=== PATIENT | male | born 1980 | race Hispanic/Latino ===

== ENCOUNTER 2020-05-05 10:22 | Outpatient (CLI) | payer OTHER ==
--- NOTE | 2020-05-05 14:36 | CT ---
Exam: Chest CT with contrast Abdomen CT with contrast Pelvic CT with contrast HISTORY: Recent EGD and colonoscopy. Mass in the colon. Correlation: None COMPARISON: No FINDINGS: Chest CT: Mediastinum: No mass, lymphadenopathy or hematoma. Aorta: Normal caliber. No periaortic fat stranding Heart: Normal heart size. No significant pericardial fluid Trachea and central bronchi: Patent Pleural spaces: No pleural effusion Right lung: Dependent atelectatic changes. No mass, consolidation or suspicious nodule. Left lung:Dependent atelectatic changes. No mass, consolidation or suspicious nodules Pneumothorax: None Abdomen CT: Gallbladder: Unremarkable Portal vein: Patent Liver: Diffuse hypoattenuation suggesting hepatic steatosis. There is a small amount of fatty sparing in the hepatic parenchyma near the gallbladder fossa. Spleen: Appropriate enhancement Pancreas: Appropriate enhancement Adrenal glands: Appropriate enhancement Lymphadenopathy: No gastrohepatic, retrocrural or periportal lymphadenopathy Kidneys: Symmetric enhancement. No obstructive uropathy Mesentery: No mass, free air or free fluid. Mildly enlarged mesenteric lymph nodes adjacent to the ce cum measuring 0.8 and 0.7 cm. Alimentary canal: Gastric mucosa, duodenum and multiple normal caliber small bowel loops are identifi ed. Normal ileocecal junction. Normal caliber appendix. There is a soft tissue mass cecum. Occasional diverticulum. No diverticulitis. Pelvis CT: No mass, lymphadenopathy, free air or free fluid. Unremarkable urinary bladder. Focal fat is preserve d. Osseous structures:No lytic or blastic lesions IMPRESSION: 1. Mass within the cecum, measuring 3.8 x 3.2 cm. No associated obstruction. There are a few enlarged adjacent mesenteric lymph nodes, worrisome for metastases until proven.
[2020-05-05] MEDS ORDERED: Iopamidol-370 76% 500 ML 1 ML ONE (15:13)
== END 2020-05-05 10:23 | disposition home or self-care (01) ==
LOC: BICCT 10:22
PROVIDERS: ATTEND Internal Medicine
DX: K63.89 Other specified diseases of intestine (principal); R59.0 Localized enlarged lymph nodes
CPT/HCPCS: 71260; 74177; Q9967

== ENCOUNTER 2020-06-14 06:33 | Outpatient (CLI) | payer OTHER ==
[2020-06-14 12:05] LABS: #Basophils 0.1 10x3/uL (0.0-0.2); #Eosinphils 0.1 10x3/uL (0.0-0.5); #Monocytes 0.6 10x3/uL (0.0-1.1); #Neutrophils 3.5 10x3/uL (1.5-8.4); %Eosinophils 1.4 % (0.0-6.0); %Lymphocytes 36.9 % (18.0-47.0); %Monocytes 8.1 % (0.0-10.0); Hemoglobin 14.8 g/dL (14.0-18.0); Mean Corpuscular Hemoglobin 28.8 PG (27.0-33.0); Mean Corpuscular Volume 87.2 fl (80.0-100.0); Mean Platelet Volume 10.4 fl (7.4-10.4); Platelet Count 279 10x3/uL (130-400); RBC Distribution Width 12.5 % (11.5-14.5); Red Blood Cell (RBC) Count 5.14 10x6/uL (4.40-5.80)
[2020-06-14 12:32] LABS: Anion Gap 14 mmol/L (10-20); BUN (Urea Nitrogen) 20 mg/dL (8.9-20.6); Calc. Creatinine Clearance 0 mL/min (70-130); Carbon Dioxide 24 mmol/L (22-29); Chloride 102 mmol/L (98-107); Glucose 150 mg/dL (70-105); Potassium 4.1 mmol/L (3.5-5.1); Sodium 136 mmol/L (136-145)
[2020-06-14 16:22] LABS: Hemoglobin A1c 8.2 % (4.0-6.0)
[2020-06-14 17:44] LABS: SARS-CoV-2 MS2 Positive; SARS-CoV-2 N Gene Negative; SARS-CoV-2 S Gene Negative; SARS-CoV-2 by NAA Not Detected (NotDetected); SARS-CoV-2 orf1ab Negative
== END 2020-06-14 06:34 | disposition home or self-care (01) ==
LOC: LABBT 06:33
PROVIDERS: ATTEND Specialist
DX: Z01.818 Encounter for other preprocedural examination (principal); K63.89 Other specified diseases of intestine; Z20.828 Contact with and (suspected) exposure to other viral communicable diseases
CPT/HCPCS: 80048; 83036; 85025; 87635; 93005; 93010; U0003

== ENCOUNTER 2020-06-14 11:00 | Inpatient (IN) | payer OTHER ==
[2020-06-14 10:30] VITALS: BMI 29.8
[2020-06-20] MEDS ORDERED: Acetaminophen 500 MG TAB ONE (07:24)
[2020-06-20] MEDS ORDERED: Ketorolac Tromethamine 30 MG/ML VIAL ONE (07:46)
[2020-06-20] MEDS ORDERED: cefOXitin Sodium/Dextrose 2 GM/50 ML BAG ONE (07:46)
[2020-06-20] MEDS ORDERED: Fentanyl 100 MCG/2 ML VIAL ONE ×4 (08:32→16:52)
[2020-06-20] MEDS ORDERED: Midazolam HCl 2 mg/2 ml Vial ONE (08:52)
[2020-06-20] MEDS ORDERED: HYDROmorphone 2 MG/ML VIAL ONE (09:20)
[2020-06-20] MEDS ORDERED: Famotidine/PF 20 mg/2ml Vial ONE (09:20)
[2020-06-20] MEDS ORDERED: Lidocaine 1% w/Epinephrine 1:100K 20 ML VIAL ONE ×2 (10:15→10:17)
[2020-06-20] MEDS ORDERED: ceFOXitin 1 GM VIAL ONE (10:17)
[2020-06-20] MEDS ORDERED: HYDROmorphone 2 MG/ML VIAL SLOW IVP PRN (10:23)
[2020-06-20] MEDS ORDERED: Promethazine HCl 25 MG/ML VIAL SLOW IVP PRN (10:23)
[2020-06-20] MEDS ORDERED: Meperidine HCl/PF 25 MG/ML VIAL SLOW IVP PRN (10:23)
[2020-06-20] MEDS ORDERED: Promethazine HCl 25 MG/ML VIAL IM PRN ×2 (10:23→17:00)
[2020-06-20] MEDS ORDERED: Lidocaine 1% PF 5 ML VIAL ONE (10:37)
[2020-06-20] MEDS ORDERED: Bupivacaine HCl 0.5%/Epinephrine 1:200,000/PF 30 ml Vial ONE (10:37)
[2020-06-20] MEDS ORDERED: Ondansetron PF 4 MG/2 ML Vial ONE (10:37)
[2020-06-20] MEDS ORDERED: PROPOFOL 200 MG/20 ML VIAL ONE (10:37)
[2020-06-20] MEDS ORDERED: Glycopyrrolate 0.2 MG/ML 5 ML SYRINGE ONE (10:37)
[2020-06-20] MEDS ORDERED: Rocuronium Bromide 10 MG/ML (10ML VIAL) ONE (10:37)
[2020-06-20] MEDS ORDERED: Promethazine HCl 25 MG/ML VIAL ONE (13:13)
[2020-06-20] MEDS ORDERED: Insulin Regular 300 UNITS/3 ML VIAL ONE (13:39)
[2020-06-20] MEDS ORDERED: Insulin Regular 300 UNITS/3 ML VIAL SC PRN (17:00)
[2020-06-20] MEDS ORDERED: hydrALAZINE 20 MG/ML VIAL SLOW IVP PRN (17:00)
[2020-06-20] MEDS ORDERED: Ondansetron PF 4 MG/2 ML Vial IVP PRN (17:00)
[2020-06-20] MEDS: Morphine 2 MG/ML VIAL SLOW IVP PRN (17:52)
[2020-06-20] MEDS: Ketorolac Tromethamine 30 MG/ML VIAL IVP SCH ×2 (17:52→23:41)
[2020-06-20] MEDS: Sodium Chloride 0.9% 1,000 ML IV SCH (17:59)
[2020-06-20] MEDS: Morphine 4 MG/ML VIAL SLOW IVP PRN ×2 (20:32→23:40)
[2020-06-20] MEDS: Enoxaparin Sodium 40 MG/0.4 ML SYRINGE SC SCH (20:33)
[2020-06-20] MEDS: Famotidine 20 MG TAB PO SCH (20:33)
[2020-06-20] MEDS: Famotidine/PF 20 mg/2ml Vial SLOW IVP SCH (21:33)
[2020-06-21] MEDS: Sodium Chloride 0.9% 1,000 ML IV SCH ×3 (00:39→14:30)
--- NOTE | 2020-06-21 02:01 | OP ---
DATE OF PROCEDURE: 06/20/2020 PREOPERATIVE DIAGNOSIS: Large right colon polyp. POSTOPERATIVE DIAGNOSIS: Large right colon polyp. OPERATION PERFORMED: Laparoscopic right hemicolectomy. PORTAL ARCHITECT: Danita Pruitt, medical student. ANESTHESIA: General endotracheal. INDICATIONS FOR PROCEDURE: The patient is a 40-year-old male. He had undergone recent colonoscopy revealing a large unresectable mass within the right colon. Tattoos were placed proximal and distal to this. He is taken to the operating room at this time for resection laparoscopically. He had undergone mechanical and antibiotic bowel prep preoperatively. DESCRIPTION OF OPERATION: Informed consent was obtained. The patient was taken to the operating room, where general endotracheal anesthesia was obtained with the patient in supine position. TAP block had been placed by Anesthesia preoperatively. Abdomen was prepped with ChloraPrep and draped in sterile fashion. Local anesthetic was infiltrated using a mixture of 1% lidocaine with epinephrine and 0.25% Marcaine in the left upper quadrant. A 5 mm incision was created, through which a Veress needle was passed into the peritoneal cavity and pneumoperitoneum was established using carbon dioxide up to pressure of 15 mmHg. A 5 mm trocar port was passed through the same incision and laparoscopic camera was passed through this port. Under direct vision, a second 5 mm port was placed in the left lower quadrant. A site was selected for the extraction site in the right upper quadrant. An 8 cm oblique incision was created at that location. Dissection was carried through skin and subcutaneous tissue. Muscle splitting was used to gain entry into the abdominal cavity. The Navjot wound retractor was placed followed by the GelPort. Hand-assisted laparoscopic surgery was continued. Attention was turned to the right lower quadrant. The cecum and right colon were examined and then the tattoos were noted within the cecum and proximal right colon. The cecum was mobilized medially by incising the peritoneum as well as the white line of Toldt. The dissection was carried in a cephalad direction up to the hepatic flexure. The hepatic flexure was carefully mobilized as well. The omentum was dissected off the proximal transverse colon. Attention was then turned to the ileocolic pedicle. This was carefully dissected and the ileocolic artery and veins were divided using the LigaSure. Exposure was difficult as the patient had substantial intraabdominal obesity. After fully mobilizing the entire right colon and hepatic flexure, the bowel was externalized through the Navjot wound retractor. I identified segments for division within the small bowel and proximal transverse colon. The mesentery was cleared of these two sites and the mesentery of the right colon was fully cleared using the LigaSure device. I then created a double stapled anastomosis with the AYESHA 75 stapler and the specimen was removed from within the abdomen. On the back table, the specimen was opened revealing a large lobulated firm mass estimated at 4 to 5 cm. There was no definite visible lymphadenopathy. Segregated instruments had been used during the time that the anastomosis was performed. These instruments have been passed off the field along with the bowel. Gloves were changed as well. The anastomosis was buttressed with interrupted sutures of 3-0 silk. The bowel was entirely viable and the anastomosis was widely patent. This was then dropped back down to the abdominal cavity. The abdomen was then assessed laparoscopically one final time. The area of the dissection was examined and irrigated and all irrigant was aspirated. There was no evidence of bleeding from a location. The liver was palpated and was without palpable abnormality. All ports and instruments were removed under direct vision. The Navjot wound retractor was removed. The abdominal wall was cleansed with saline. All laparoscopic instrumentation was passed off the field. The closing tray was utilized. Gowns and gloves were changed. The fascia in the right abdominal incision was closed in two layers using running suture of #1 PDS. Additional local anesthetic was instilled in the anterior fascial layer. Subcutaneous tissue was then irrigated using over a liter of irrigant. Karla's was approximated with interrupted sutures of 3-0 Vicryl. Skin edges approximated with 4-0 Monocryl subcuticular suture. Dermabond was placed externally. The other port sites were also closed with 4-0 Monocryl subcuticular suture. There were no complications with the operation. Blood loss was minimal, approximately 50 mL. The patient was taken to recovery room in stable condition. Job ID: [id number]
[2020-06-21] MEDS: Morphine 4 MG/ML VIAL SLOW IVP PRN ×2 (02:40→05:46)
[2020-06-21] MEDS: Ketorolac Tromethamine 30 MG/ML VIAL IVP SCH ×4 (05:43→23:15)
[2020-06-21 06:08] LABS: #Basophils 0.1 thou/uL (0.0-0.2); #Lymphocytes 2.8 thou/uL (1.20-3.40); #Monocytes 0.8 thou/uL (0.11-0.59); #Neutrophils 6.1 thou/uL (1.40-6.50); %Basophils 0.7 % (0.0-1.0); %Eosinophils 0.3 % (0.0-10.0); %Lymphocytes 28.4 % (21.0-51.0); %Monocytes 7.8 % (0.0-10.0); %Neutrophils 62.7 % (42.0-75.0); Hemoglobin 12.8 g/dL (14.0-18.0); Mean Corpuscular HGB CONC 33.7 g/dL (32.0-36.0); Mean Corpuscular Hemoglobin 30.2 pg (27.0-31.0); Mean Corpuscular Volume 89.6 fL (78.0-98.0); Mean Platelet Volume 8.3 fL (7.4-10.4); Platelet Count 227 thou/uL (130-400); Red Blood Cell (RBC) Count 4.25 mill/uL (4.70-6.10); White Blood Cell (WBC) Count 9.7 thou/uL (4.8-10.8)
[2020-06-21 06:31] LABS: Anion Gap 11 mmol/L (10-20); BUN (Urea Nitrogen) 10 mg/dL (8.9-20.6); Calc. Creatinine Clearance 89 mL/min (70-130); Calcium 7.9 mg/dL (7.8-10.44); Carbon Dioxide 26 mmol/L (22-29); Chloride 107 mmol/L (98-107); Glucose 98 mg/dL (70-105); Potassium 3.5 mmol/L (3.5-5.1); Sodium 140 mmol/L (136-145)
--- NOTE | 2020-06-21 07:50 | PDOC.GSPN ---
Surgery Progress Note: Subj - Subjective Patient reports: tolerating liquids well, voiding w/o difficulty, no bowel movem ent, no flatus, still having pain Narrative: Mr. 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 Patient reports current pain level 9/10, exacerbated by movement. Morphine and toradol help pain go down to 6-7/10, although pain relief will only last for about 2-2.5 hours. He has not yet passed gas or had a bowel movement. He explains he has the urge to pass gas, but has not yet noticed if he has. The patient affirms he is tolerating a clear liquid diet. No fever, chills, nausea, vomiting, SOB, or chest pain. The patient was able to walk two laps in the hallway yesterday. Of note, he reports an increase in his anxiety. He usually takes lorazepam and does have his home meds with him. Surgery Progress Note: Obj - Vital signs Vital signs: Vital Signs - Most Recent Temp Pulse Resp BP Pulse Ox 98.1 F 94 18 106/71 94 L 06/21/20 04:25 06/21/20 04:25 06/21/20 04:25 06/21/20 04:25 06/21/20 04:25 - Physical Exam General: moderate pain Cardiovascular: regular rate and rhythm Respiratory: clear to auscultation, normal expansion, normal respiratory effort Abdomen: positive bowel sounds, appropriately tender, distended Hernia: none Wound: healing well Surgery Progress Note: Results - Labs Result Diagrams: 06/21/20 05:23 06/21/20 05:23 Lab results: Laboratory Results - last 12 hr 06/20/20 06/21/20 06/21/20 21:00 05:11 05:23 WBC RBC Hgb Hct MCV MCH MCHC RDW Plt Count MPV Neutrophils % Lymphocytes % Monocytes % Eosinophils % Basophils % Neutrophils # Lymphocytes # Monocytes # Eosinophils # Basophils # Sodium 140 Potassium 3.5 Chloride 107 Carbon Dioxide 26 Anion Gap 11 BUN 10 Creatinine 1.30 Estimated GFR (MDRD) 61 Glucose 98 POC Glucose 203 H 102 H Calcium 7.9 06/21/20 05:23 WBC 9.7 RBC 4.25 L Hgb 12.8 L Hct 38.1 L MCV 89.6 MCH 30.2 MCHC 33.7 RDW 12.0 Plt Count 227 MPV 8.3 Neutrophils % 62.7 Lymphocytes % 28.4 Monocytes % 7.8 Eosinophils % 0.3 Basophils % 0.7 Neutrophils # 6.1 Lymphocytes # 2.8 Monocytes # 0.8 H Eosinophils # 0.0 Basophils # 0.1 Sodium Potassium Chloride Carbon Dioxide Anion Gap BUN Creatinine Estimated GFR (MDRD) Glucose POC Glucose Calcium Surgery Progress Note: A/P - Problem (1) Colonic mass Current Visit: Yes Code(s): K63.89 - OTHER SPECIFIED DISEASES OF INTESTINE Status: Acute - Plan Plan: Mr. 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 He reports moderate pain, with pain levels ranging from 6-9/10. Patient is tolerating clear liquid diet w/ no nausea or vomiting. No flatus or bowel movement yet. He has been able to walk. Plan: 1. Continue pain management as needed 2. Encourage ambulation, remain on SCDs and lovenox for DVT prophylaxis 3. Advance to full liquid diet as tolerated 4. D/C alas catheter
[2020-06-21] MEDS ORDERED: Non-Formulary Item 1 EACH (Losartan Potassium [Losartan Potassium] 50 MG Tablet) PO SCH (09:00)
[2020-06-21] MEDS: Morphine 2 MG/ML VIAL SLOW IVP PRN ×2 (09:19→14:28)
[2020-06-21] MEDS: ALPRAZolam 1 MG TAB PO PRN ×2 (09:33→17:35)
[2020-06-21] MEDS: Glimepiride 4 MG TAB PO SCH (09:33)
[2020-06-21] MEDS: Famotidine 20 MG TAB PO SCH ×2 (09:33→20:35)
[2020-06-21] MEDS: Pregabalin 75 MG CAP PO SCH ×2 (09:33→20:35)
[2020-06-21] MEDS: Losartan 25 MG TAB PO SCH ×2 (09:33→20:34)
[2020-06-21] MEDS: Famotidine/PF 20 mg/2ml Vial SLOW IVP SCH ×2 (09:35→20:35)
[2020-06-21] MEDS: hydrOXYzine 10 MG TAB PO SCH ×3 (10:43→20:35)
[2020-06-21] MEDS: Fenofibrate Nanocrystallized 145 MG TAB PO SCH (10:44)
[2020-06-21] MEDS: Empagliflozin 25 MG TAB PO SCH (10:44)
[2020-06-21] MEDS ORDERED: Acetaminophen/Codeine 30-300mg Tablet PO PRN (11:27)
[2020-06-21] MEDS: Simethicone Chewable 80 MG TAB PO PRN ×2 (11:34→20:35)
[2020-06-21] MEDS: Acetaminophen/Codeine 30-300mg Tablet PO PRN ×3 (11:37→21:33)
[2020-06-21] MEDS: Enoxaparin Sodium 40 MG/0.4 ML SYRINGE SC SCH (20:35)
[2020-06-21] MEDS ORDERED: Rosuvastatin 10 MG TAB PO SCH (21:00)
[2020-06-22] MEDS: Ketorolac Tromethamine 30 MG/ML VIAL IVP SCH ×2 (05:34→12:11)
[2020-06-22] MEDS: Famotidine 20 MG TAB PO SCH (09:07)
[2020-06-22] MEDS: Glimepiride 4 MG TAB PO SCH (09:07)
[2020-06-22] MEDS: hydrOXYzine 10 MG TAB PO SCH (09:07)
[2020-06-22] MEDS: Pregabalin 75 MG CAP PO SCH (09:07)
[2020-06-22] MEDS: Losartan 25 MG TAB PO SCH (09:08)
[2020-06-22] MEDS: Famotidine/PF 20 mg/2ml Vial SLOW IVP SCH (09:09)
[2020-06-22] MEDS: Fenofibrate Nanocrystallized 145 MG TAB PO SCH (09:09)
[2020-06-22] MEDS: Acetaminophen/Codeine 30-300mg Tablet PO PRN (09:15)
[2020-06-22] MEDS: Empagliflozin 25 MG TAB PO SCH (10:16)
[2020-06-22] MEDS: ALPRAZolam 1 MG TAB PO PRN (12:11)
[2020-06-22 16:14] VITALS: BP 135/87; TEMP 97.8
[2020-06-22] MEDS: Sodium Chloride 0.9% 1,000 ML IV SCH (16:25)
== END 2020-06-22 16:50 | disposition home or self-care (01) | DRG 331 ==
LOC: SURG A 06-20 07:02
PROVIDERS: ADMIT Specialist; ATTEND Specialist
PROC: 0DTF0ZZ Resection of Right Large Intestine, Open Approach (ICD-10-PCS; principal; 2020-06-20)
PROC: 07BB0ZZ Excision of Mesenteric Lymphatic, Open Approach (ICD-10-PCS; 2020-06-20)
DX: K63.5 Polyp of colon (principal); Z88.6 Allergy status to analgesic agent; Z88.8 Allergy status to other drugs, medicaments and biological substances; Z79.899 Other long term (current) drug therapy; Z79.890 Hormone replacement therapy; Z87.891 Personal history of nicotine dependence
CPT/HCPCS: 36415; 36416; 80048; 85025; 88309; J0694; J1170; J1650; J1815; J1885; J2250; J2270; J2405; J2550; J2704; J3010; S0028

== ENCOUNTER 2020-07-02 16:48 | Emergency (ER) | payer OTHER ==
[~2020-07-02 16:48] MED LIST: Iopamidol-370 76% 500 ML 1 ML ONE
[2020-07-02 18:15] LABS: #Basophils 0.1 thou/uL (0.0-0.2); #Eosinphils 0.2 thou/uL (0.0-0.7); #Lymphocytes 2.7 thou/uL (1.20-3.40); #Monocytes 0.7 thou/uL (0.11-0.59); #Neutrophils 6.5 thou/uL (1.40-6.50); %Basophils 0.9 % (0.0-1.0); %Eosinophils 1.8 % (0.0-10.0); %Lymphocytes 26.6 % (21.0-51.0); %Monocytes 7.3 % (0.0-10.0); %Neutrophils 63.5 % (42.0-75.0); Mean Corpuscular HGB CONC 34.3 g/dL (32.0-36.0); Mean Corpuscular Hemoglobin 30.2 pg (27.0-31.0); Mean Corpuscular Volume 88.1 fL (78.0-98.0); Mean Platelet Volume 7.5 fL (7.4-10.4); Platelet Count 455 thou/uL (130-400); RBC Distribution Width 12.1 % (11.5-14.5); White Blood Cell (WBC) Count 10.2 thou/uL (4.8-10.8)
[2020-07-02] MEDS ORDERED: Morphine 4 MG/ML VIAL ONE ×2 (18:20→21:13)
[2020-07-02] MEDS ORDERED: Ketorolac Tromethamine 30 MG/ML VIAL ONE (18:21)
[2020-07-02] MEDS ORDERED: Dicyclomine 20 MG TAB ONE (18:21)
[2020-07-02 18:43] LABS: ALT (SGPT) 105 U/L (8-55); AST (SGOT) 62 U/L (5-34); Albumin 4.5 g/dL (3.5-5.0); Alkaline Phosphatase 129 U/L (40-110); Anion Gap 17 mmol/L (10-20); BUN (Urea Nitrogen) 16 mg/dL (8.9-20.6); Bilirubin, Total 0.5 mg/dL (0.2-1.2); Calc. Creatinine Clearance 0 mL/min (70-130); Calcium 9.1 mg/dL (7.8-10.44); Carbon Dioxide 24 mmol/L (22-29); Chloride 101 mmol/L (98-107); Globulin 4.5 g/dL (2.4-3.5); Glucose 92 mg/dL (70-105); Lipase 63 U/L (8-78); Potassium 4.9 mmol/L (3.5-5.1); Sodium 137 mmol/L (136-145)
--- NOTE | 2020-07-02 21:03 | CT ---
CT ABDOMEN AND PELVIS WITH IV CONTRAST: History: 40-year-old male with abdominal pain, nausea, loss of appetite. Patient vomited yesterday. P mitzy had colectomy on 06-20-2020 and has lost 13 lbs. since then. Comparison: 05-05-2020 FINDINGS: There are mild dependent changes in the lung bases. Changes of infiltration of the liver is again see n. No calcified gallstones are noted. The spleen, pancreas, adrenal glands and kidneys are normal. There are post op changes of right partial colectomy. There is a small amount of free fluid in the ri ght hemiabdomen extending superiorly from the anterior aspect of the liver down into the right lower quadrant. There is inflammatory change/induration of the fat in the right hemiabdomen from the right lower quadrant extending into the inferior tip of the gallbladder. No free air, lymphadenopathy, or a bdominal loculated fluid collection is seen. Some of the small bowel loops in the left hemiabdomen ar e mildly dilated. The sclerotic focus in the left lateral superior pubic ramus is again seen. IMPRESSION: 1. Post op changes since 05-05-2020 with a small amount of fluid and inflammation in the right h emiabdomen extending to the inferior tip of the gallbladder. The possibility of early secondary jm cystitis cannot be excluded. 2. Mildly dilated loops of small bowel in the left hemiabdomen. ileus versus developing small allison wel obstruction. POS: OFF
--- NOTE | 2020-07-02 23:12 | PDOC.CONS ---
- Consultation Encounter Date: 07/02/20 Encounter Time: 23:11 CHIEF COMPLAINT: Abdominal pain HISTORY OF PRESENT ILLNESS: 40-year-old male status post laparoscopic right hemicolectomy on June 20, 2020 presents with complaints of abdominal pain for 48 hours. The pain is described as severe and cramping and is located in the mid and lower abdomen. He endorses a single episode of non-bilious emesis yesterday. He had a normal bowel movement approximately 2 hours prior to presentation. He has been tolerating his diet and ambulating regularly. He does report that he ate only liquids and soft foods today. He denies any fever or chills. REVIEW OF SYSTEMS: General: Denies recent weight changes, fever, or chills. Eyes: Denies visual changes, pain, or irritation ENT: Denies changes in hearing, nasal discharge, or sore throat Cardiovascular: Denies chest pain, palpitations, shortness of breath, or edema. Respiratory: Denies cough, shortness of breath, or wheezing Gastrointestinal: Denies abdominal pain, nausea, or vomiting. Genitourinary: Positive per HPI Musculoskeletal: Denies pain or restricted motion Integumentary: Denies abnormal rashes, sores, or skin lesions Neurological: Denies numbness, tingling, or weakness. Psychiatric: Denies new onset anxiety or depression Endocrine: Denies temperature intolerances, polyuria, or excessive thirst Hematologic: Denies abnormal bruising or bleeding PAST MEDICAL HISTORY: Diabetes mellitus Hyperlipidemia Hypothyroidism PTSD PAST SURGICAL HISTORY: Left first finger amputation Laparoscopic right hemicolectomy FAMILY HISTORY: Noncontributory SOCIAL HISTORY Never smoker, denies illicit drug use, endorses occasional alcohol consumption. ALLERGIES: Hydrocodone, oxycodone, Percocet, tramadol PHYSICAL EXAM: Vital Signs: HR 76 BP 119/74 T 98 1 RR 18 SpO2 100% room air General: Alert and oriented, no acute distress ENT: Sclera anicteric, pupils equal and reactive, mucous membranes moist Neck: No jugular venous distention, trachea midline Cardiovascular: Regular rate and rhythm Pulmonary: Clear to auscultation Abdominal: Soft, nondistended, mild tenderness with palpation with no evidence of peritonitis. Minimal tympany Genitourinary: Normal anatomy Rectal: Deferred Integument: No abnormal rashes or lesions Musculoskeletal: No gross deformities or edema, normal range of motion LABORATORY: Laboratory analysis reviewed and is grossly normal with the exception of thrombocytosis at 455. White blood cell count is 10.2. Hemoglobin 16 IMAGING: Computed tomography abdomen reviewed as well as radiology interpretation. Show some inflammatory changes in the right hemiabdomen consistent with laparoscopic right hemicolectomy. Mildly dilated small bowel loops up to 3 cm with no transition point indicating possible developing small bowel obstruction ASSESSMENT: 40-year-old male with abdominal pain and mildly dilated small bowel. PLAN: Given the patient's benign laboratory analysis and his regular bowel function, it is unlikely that he has a significant small bowel obstruction. His symptoms may be due to transitioning bowel habits with recent colectomy. He was encouraged to take a laxative daily. He has follow-up scheduled with Dr. Deena beauchamp on Friday. Okay to discharge home.
== END 2020-07-02 22:27 | disposition home or self-care (01) ==
LOC: ERS 16:48
DX: G89.18 Other acute postprocedural pain (principal); R10.84 Generalized abdominal pain; E11.9 Type 2 diabetes mellitus without complications; I10 Essential (primary) hypertension; E03.9 Hypothyroidism, unspecified; F41.0 Panic disorder [episodic paroxysmal anxiety]; Z79.899 Other long term (current) drug therapy
CPT/HCPCS: 36415; 74177; 80053; 83605; 83690; 85025; 96374; 96375; 96376; J1885; J2270; Q9967

== ENCOUNTER 2020-10-14 11:42 | Emergency (ER) | payer OTHER ==
[2020-10-14 12:19] LABS: #Basophils 0.1 thou/uL (0.0-0.2); #Eosinphils 0.1 thou/uL (0.0-0.7); #Lymphocytes 2.5 thou/uL (1.20-3.40); #Monocytes 0.5 thou/uL (0.11-0.59); #Neutrophils 3.9 thou/uL (1.40-6.50); %Basophils 1.5 % (0.0-1.0); %Eosinophils 1.8 % (0.0-10.0); %Monocytes 7.5 % (0.0-10.0); %Neutrophils 54.2 % (42.0-75.0); Hemoglobin 15.9 g/dL (14.0-18.0); Mean Corpuscular HGB CONC 34.3 g/dL (32.0-36.0); Mean Corpuscular Hemoglobin 29.7 pg (27.0-31.0); Mean Corpuscular Volume 86.6 fL (78.0-98.0); Mean Platelet Volume 7.7 fL (7.4-10.4); Platelet Count 312 thou/uL (130-400); RBC Distribution Width 12.3 % (11.5-14.5); Red Blood Cell (RBC) Count 5.35 mill/uL (4.70-6.10); White Blood Cell (WBC) Count 7.1 thou/uL (4.8-10.8)
[2020-10-14 12:49] LABS: ALT (SGPT) 142 U/L (8-55); AST (SGOT) 69 U/L (5-34); Albumin 4.1 g/dL (3.5-5.0); Alkaline Phosphatase 98 U/L (40-110); Anion Gap 13 mmol/L (10-20); BUN (Urea Nitrogen) 13 mg/dL (8.9-20.6); Bilirubin, Total 1.1 mg/dL (0.2-1.2); Calc. Creatinine Clearance 0 mL/min (70-130); Calcium 9.1 mg/dL (7.8-10.44); Carbon Dioxide 25 mmol/L (22-29); Chloride 102 mmol/L (98-107); Globulin 3.4 g/dL (2.4-3.5); Glucose 233 mg/dL (70-105); Potassium 3.8 mmol/L (3.5-5.1); Protein, Total 7.5 g/dL (6.0-8.3); Sodium 136 mmol/L (136-145)
== END 2020-10-14 14:12 | disposition home or self-care (01) ==
LOC: ERS 11:42
DX: R07.9 Chest pain, unspecified (principal); E11.65 Type 2 diabetes mellitus with hyperglycemia; I10 Essential (primary) hypertension; E03.9 Hypothyroidism, unspecified; E78.00 Pure hypercholesterolemia, unspecified; Z79.899 Other long term (current) drug therapy
CPT/HCPCS: 36415; 71045; 80053; 84484; 85025; 93005

== ENCOUNTER 2020-11-15 17:51 | Emergency (ER) | payer OTHER ==
[2020-11-15 18:30] LABS: #Basophils 0.1 thou/uL (0.0-0.2); #Eosinphils 0.1 thou/uL (0.0-0.7); #Lymphocytes 3.4 thou/uL (1.20-3.40); #Monocytes 0.7 thou/uL (0.11-0.59); #Neutrophils 4.2 thou/uL (1.40-6.50); %Basophils 1.7 % (0.0-1.0); %Eosinophils 1.2 % (0.0-10.0); %Lymphocytes 40.1 % (21.0-51.0); %Monocytes 8.1 % (0.0-10.0); %Neutrophils 48.9 % (42.0-75.0); Hemoglobin 16.4 g/dL (14.0-18.0); Mean Corpuscular HGB CONC 33.8 g/dL (32.0-36.0); Mean Corpuscular Volume 85.9 fL (78.0-98.0); Mean Platelet Volume 8.1 fL (7.4-10.4); Platelet Count 315 thou/uL (130-400); RBC Distribution Width 12.5 % (11.5-14.5); Red Blood Cell (RBC) Count 5.65 mill/uL (4.70-6.10); White Blood Cell (WBC) Count 8.5 thou/uL (4.8-10.8)
[2020-11-15] MEDS ORDERED: Metoclopramide HCl 10 MG/2 ML VIAL ONE (18:49)
[2020-11-15] MEDS ORDERED: diphenhydrAMINE 50 MG/ML VIAL ONE (18:49)
[2020-11-15 18:54] LABS: ALT (SGPT) 70 U/L (8-55); AST (SGOT) 30 U/L (5-34); Albumin 4.5 g/dL (3.5-5.0); Alkaline Phosphatase 97 U/L (40-110); Anion Gap 17 mmol/L (10-20); BUN (Urea Nitrogen) 21 mg/dL (8.9-20.6); Bilirubin, Total 0.5 mg/dL (0.2-1.2); CK (CPK) 194 U/L (30-200); Calc. Creatinine Clearance 0 mL/min (70-130); Calcium 9.5 mg/dL (7.8-10.44); Carbon Dioxide 21 mmol/L (22-29); Chloride 101 mmol/L (98-107); Globulin 3.9 g/dL (2.4-3.5); Glucose 207 mg/dL (70-105); Potassium 3.8 mmol/L (3.5-5.1); Protein, Total 8.4 g/dL (6.0-8.3); Sodium 135 mmol/L (136-145)
== END 2020-11-15 20:03 | disposition home or self-care (01) ==
LOC: ERS 17:51
DX: E86.0 Dehydration (principal); R29.700 NIHSS score 0; E11.9 Type 2 diabetes mellitus without complications; E78.00 Pure hypercholesterolemia, unspecified; G43.909 Migraine, unspecified, not intractable, without status migrainosus; Z79.899 Other long term (current) drug therapy; Z79.84 Long term (current) use of oral hypoglycemic drugs
CPT/HCPCS: 36416; 70450; 71045; 80053; 82550; 84484; 85025; 93005; 96374; 96375; J1200; J2765

== ENCOUNTER 2021-03-21 13:46 | Emergency (ER) | payer OTHER ==
[2021-03-21 16:54] LABS: #Basophils 0.1 thou/uL (0.0-0.2); #Eosinphils 0.1 thou/uL (0.0-0.7); #Monocytes 0.9 thou/uL (0.11-0.59); #Neutrophils 4.5 thou/uL (1.40-6.50); %Basophils 1.2 % (0.0-1.0); %Eosinophils 1.5 % (0.0-10.0); %Lymphocytes 34.5 % (21.0-51.0); %Monocytes 10.8 % (0.0-10.0); Hemoglobin 15.5 g/dL (14.0-18.0); Mean Corpuscular HGB CONC 33.6 g/dL (32.0-36.0); Mean Corpuscular Hemoglobin 29.1 pg (27.0-31.0); Mean Corpuscular Volume 86.5 fL (78.0-98.0); Mean Platelet Volume 8.5 fL (7.4-10.4); Platelet Count 293 thou/uL (130-400); Red Blood Cell (RBC) Count 5.35 mill/uL (4.70-6.10); White Blood Cell (WBC) Count 8.6 thou/uL (4.8-10.8)
[2021-03-21 17:18] LABS: ALT (SGPT) 90 U/L (8-55); AST (SGOT) 36 U/L (5-34); Albumin 4.2 g/dL (3.5-5.0); Alkaline Phosphatase 112 U/L (40-110); Anion Gap 10 mmol/L (10-20); BUN (Urea Nitrogen) 17 mg/dL (8.9-20.6); Bilirubin, Total 0.7 mg/dL (0.2-1.2); Calc. Creatinine Clearance 0 mL/min (70-130); Calcium 9.4 mg/dL (7.8-10.44); Carbon Dioxide 26 mmol/L (22-29); Chloride 102 mmol/L (98-107); Globulin 3.4 g/dL (2.4-3.5); Glucose 355 mg/dL (70-105); Lipase 97 U/L (8-78); Magnesium 2.1 mg/dL (1.6-2.6); Potassium 4.2 mmol/L (3.5-5.1); Protein, Total 7.6 g/dL (6.0-8.3); Sodium 134 mmol/L (136-145)
== END 2021-03-21 18:21 | disposition home or self-care (01) ==
LOC: ERS 13:46
DX: K52.9 Noninfective gastroenteritis and colitis, unspecified (principal); N17.9 Acute kidney failure, unspecified; E11.9 Type 2 diabetes mellitus without complications; I10 Essential (primary) hypertension; E03.9 Hypothyroidism, unspecified; E78.00 Pure hypercholesterolemia, unspecified; Z79.84 Long term (current) use of oral hypoglycemic drugs; Z79.899 Other long term (current) drug therapy
CPT/HCPCS: 74177; 80053; 83690; 83735; 85025; 87324; 87449; Q9967

== ENCOUNTER 2021-03-29 13:02 | Emergency (ER) | payer OTHER ==
[2021-03-29 14:01] LABS: #Basophils 0.2 thou/uL (0.0-0.2); #Eosinphils 0.2 thou/uL (0.0-0.7); #Lymphocytes 3.2 thou/uL (1.20-3.40); #Monocytes 0.6 thou/uL (0.11-0.59); %Basophils 1.7 % (0.0-1.0); %Eosinophils 2.1 % (0.0-10.0); %Lymphocytes 35.1 % (21.0-51.0); %Neutrophils 54.1 % (42.0-75.0); Hemoglobin 15.9 g/dL (14.0-18.0); Mean Corpuscular HGB CONC 34.8 g/dL (32.0-36.0); Mean Corpuscular Hemoglobin 29.8 pg (27.0-31.0); Mean Corpuscular Volume 85.4 fL (78.0-98.0); Mean Platelet Volume 8.4 fL (7.4-10.4); Platelet Count 268 thou/uL (130-400); Red Blood Cell (RBC) Count 5.35 mill/uL (4.70-6.10); White Blood Cell (WBC) Count 9.2 thou/uL (4.8-10.8)
[2021-03-29 14:23] LABS: ALT (SGPT) 104 U/L (8-55); AST (SGOT) 53 U/L (5-34); Albumin 4.3 g/dL (3.5-5.0); Alkaline Phosphatase 116 U/L (40-110); Anion Gap 16 mmol/L (10-20); BUN (Urea Nitrogen) 15 mg/dL (8.9-20.6); Calc. Creatinine Clearance 0 mL/min (70-130); Calcium 9.6 mg/dL (7.8-10.44); Carbon Dioxide 22 mmol/L (22-29); Chloride 101 mmol/L (98-107); Globulin 3.5 g/dL (2.4-3.5); Glucose 403 mg/dL (70-105); Potassium 4.4 mmol/L (3.5-5.1); Protein, Total 7.8 g/dL (6.0-8.3); Sodium 135 mmol/L (136-145)
[2021-03-29] MEDS ORDERED: Ketorolac Tromethamine 30 MG/ML VIAL ONE (16:23)
== END 2021-03-29 18:15 | disposition home or self-care (01) ==
LOC: ERS 13:02
DX: R07.81 Pleurodynia (principal); E86.0 Dehydration; K76.0 Fatty (change of) liver, not elsewhere classified; R79.89 Other specified abnormal findings of blood chemistry; E11.9 Type 2 diabetes mellitus without complications; I10 Essential (primary) hypertension; E03.9 Hypothyroidism, unspecified; E78.00 Pure hypercholesterolemia, unspecified; Z79.899 Other long term (current) drug therapy
CPT/HCPCS: 36415; 71045; 71275; 76705; 80053; 84484; 85025; 85379; 93005; 96374; J1885

== ENCOUNTER 2021-12-11 21:26 | Emergency (ER) | payer OTHER ==
[2021-12-11] MEDS ORDERED: Metoclopramide HCl 10 MG/2 ML VIAL ONE (22:17)
[2021-12-11] MEDS ORDERED: diphenhydrAMINE 50 MG/ML VIAL ONE (22:17)
[2021-12-11] MEDS ORDERED: Ketorolac Tromethamine 30 MG/ML VIAL ONE (22:17)
== END 2021-12-12 00:31 | disposition home or self-care (01) ==
LOC: ERS 21:26
DX: S09.90XA Unspecified injury of head, initial encounter (principal); G43.909 Migraine, unspecified, not intractable, without status migrainosus; I10 Essential (primary) hypertension; E11.9 Type 2 diabetes mellitus without complications; E03.9 Hypothyroidism, unspecified; E78.00 Pure hypercholesterolemia, unspecified; K21.9 Gastro-esophageal reflux disease without esophagitis; W10.9XXA Fall (on) (from) unspecified stairs and steps, initial encounter; Y92.009 Unspecified place in unspecified non-institutional (private) residence as the place of occurrence of the external cause; Z79.84 Long term (current) use of oral hypoglycemic drugs; Z79.899 Other long term (current) drug therapy
CPT/HCPCS: 70450; 96365; 96375; J1200; J1885; J2765

== ENCOUNTER 2022-04-24 16:08 | Emergency (ER) | payer OTHER, SELFPAY ==
[2022-04-24] MEDS ORDERED: Boostrix 0.5 ML (Tdap) VIAL (>/=7 yrs of age) ONE (17:26)
[2022-04-24] MEDS ORDERED: Lidocaine 1% PF 5 ML VIAL ONE (18:01)
[2022-04-24] MEDS ORDERED: Ketorolac Tromethamine 30 MG/ML VIAL ONE (19:14)
[2022-04-24] MEDS ORDERED: Bacitracin 1 PK ONE (19:22)
== END 2022-04-24 19:30 | disposition home or self-care (01) ==
LOC: ERS 16:08
DX: S61.012A Laceration without foreign body of left thumb without damage to nail, initial encounter (principal); E11.9 Type 2 diabetes mellitus without complications; E78.00 Pure hypercholesterolemia, unspecified; I10 Essential (primary) hypertension; W45.8XXA Other foreign body or object entering through skin, initial encounter; Z86.73 Personal history of transient ischemic attack (TIA), and cerebral infarction without residual deficits; Z79.84 Long term (current) use of oral hypoglycemic drugs; Z79.899 Other long term (current) drug therapy
CPT/HCPCS: 12001; 90471; 90715; 96372; J1885

== ENCOUNTER 2023-03-31 21:41 | Emergency (ER) | payer OTHER ==
[2023-03-31 22:01] LABS: #Basophils 0.1 thou/uL (0.0-0.2); #Eosinphils 0.1 thou/uL (0.0-0.7); #Monocytes 0.7 thou/uL (0.11-0.59); #Neutrophils 4.8 thou/uL (1.40-6.50); %Basophils 0.8 % (0.0-1.0); %Eosinophils 1.1 % (0.0-10.0); %Lymphocytes 32.4 % (21.0-51.0); %Monocytes 8.1 % (0.0-10.0); %Neutrophils 56.7 % (42.0-75.0); Hematocrit 47.6 % (42.0-52.0); Hemoglobin 16.7 g/dL (14.0-18.0); Mean Corpuscular HGB CONC 35.1 g/dL (32.0-36.0); Mean Corpuscular Hemoglobin 30.3 pg (27.0-31.0); Mean Corpuscular Volume 86.2 fl (78.0-98.0); Mean Platelet Volume 9.8 fL (7.4-10.4); Platelet Count 259 10x3/uL (130-400); Red Blood Cell (RBC) Count 5.52 mill/uL (4.70-6.10); White Blood Cell (WBC) Count 8.5 10x3/uL (4.8-10.8)
[2023-03-31] MEDS ORDERED: Nitroglycerin 2% Ointment 1 INCH/1 GM Packet ONE (22:26)
[2023-03-31] MEDS ORDERED: Aspirin Chewable 81 MG TAB ONE (22:26)
[2023-03-31 22:31] LABS: Troponin I Less than 0.010 ng/mL (< 0.028)
[2023-03-31 22:34] LABS: ALT (SGPT) 88 U/L (8-55); AST (SGOT) 46 U/L (5-34); Albumin 4.7 g/dL (3.5-5.0); Alkaline Phosphatase 85 U/L (40-110); Anion Gap 16 mmol/L (10-20); BUN (Urea Nitrogen) 10 mg/dL (8.9-20.6); Bilirubin, Total 0.7 mg/dL (0.2-1.2); Calc. Creatinine Clearance 0 mL/min (70-130); Calcium 9.3 mg/dL (7.8-10.44); Carbon Dioxide 25 mmol/L (22-29); Chloride 100 mmol/L (98-107); Estimated GFR 67; Globulin 3.5 g/dL (2.4-3.5); Glucose 173 mg/dL (70-105); Lipase 106 U/L (8-78); Potassium 3.7 mmol/L (3.5-5.1); Protein, Total 8.2 g/dL (6.0-8.3); Sodium 137 mmol/L (136-145)
[2023-03-31 22:50] LABS: Amphetamine Not Detected (NotDetected); Barbiturates Screen Not Detected (NotDetected); Benzodiazepine Screen Detected (NotDetected); Cocaine Metabolite Screen Not Detected (NotDetected); Methadone Not Detected (NotDetected); Methamphetamine Not Detected (NotDetected); Opiate Screen Not Detected (NotDetected); Oxycodone Screen Not Detected (NotDetected); Phencyclidine (PCP) Not Detected (NotDetected); THC/Cannabinoid Screen Not Detected (NotDetected); Tricyclic Screen Not Detected (NotDetected)
[2023-03-31 22:58] LABS: Acetaminophen Less than 10 mcg/mL (10.0-30.0); Alcohol Less than 10.0 mg/dL (Less than 10); Salicylate Less than 8.0 mg/dL (15.0-30.0)
[2023-04-01 01:20] LABS: Troponin I Less than 0.010 ng/mL (< 0.028)
== END 2023-04-01 01:22 | disposition home or self-care (01) ==
LOC: ERS 21:41
DX: I24.9 Acute ischemic heart disease, unspecified (principal); E78.00 Pure hypercholesterolemia, unspecified; I10 Essential (primary) hypertension; E11.9 Type 2 diabetes mellitus without complications; Z79.84 Long term (current) use of oral hypoglycemic drugs; Z79.899 Other long term (current) drug therapy
CPT/HCPCS: 36415; 71045; 80053; 80306; 80307; 83690; 84484; 85025; 93005